=== PATIENT | female | born 1980 | race African-American/Black ===

== ENCOUNTER 2018-07-17 16:31 | Emergency (ER) | payer SELFPAY ==
[~2018-07-17] VITALS: Ht 167.6 cm; Wt 68.0 kg
[2018-07-17 16:47] VITALS: BP 146/100
[2018-07-17] MEDS ORDERED: ERYT1OIN6 OP (17:09)
--- NOTE | 2018-07-17 17:09 | PHYS DOC ---
Past Medical History Past Medical History: No Pertinent History Past Surgical History: No Surgical History Alcohol Use: Occasionally Drug Use: None Adult General Chief Complaint Chief Complaint: EYE PROBLEMS HPI HPI Patient is a 38 year old female with no significant medical history who presents today with styes to bilateral upper eyelids that began a week ago. Patient states she has tried home remedies with no success. Denies any vision loss. Review of Systems Review of Systems Constitutional: Denies fever or chills [] Eyes:Reports styes to bilateral upper eyelids. Denies change in visual acuity, redness, or eye pain [] HENT: Denies nasal congestion or sore throat [] Respiratory: Denies cough or shortness of breath [] Cardiovascular: No additional information not addressed in HPI [] GI: Denies abdominal pain, nausea, vomiting, bloody stools or diarrhea [] : Denies dysuria or hematuria [] Musculoskeletal: Denies back pain or joint pain [] Integument: Denies rash or skin lesions [] Neurologic: Denies headache, focal weakness or sensory changes [] All other systems were reviewed and found to be within normal limits, except as documented in this note. Allergies Allergies Allergies Coded Allergies Type Severity Reaction Last Updated Verified No Known Drug Allergies 07/17/18 No Physical Exam Physical Exam Constitutional: Well developed, well nourished, no acute distress, non-toxic appearance. [] HENT: Normocephalic, atraumatic, bilateral external ears normal, oropharynx moist, no oral exudates, nose normal. [] Eyes: PERRLA, EOMI, conjunctiva normal, no discharge. Left upper eyelid with 2 indurated area on the middle of the eyelid suspicious for stye. No fluctuance no erythema to the areas. Right upper eyelid with 3 indurated area distributed along the upper eyelid suspicious for stye, there is no fluctuance or erythema to this areas Neck: Normal range of motion, no tenderness, supple, no stridor. [] Cardiovascular:Heart rate regular rhythm, no murmur [] Lungs & Thorax: Bilateral breath sounds clear to auscultation [] Abdomen: Bowel sounds normal, soft, no tenderness, no masses, no pulsatile masses. [] Skin: Warm, dry, no erythema, no rash. [] Back: No tenderness, no CVA tenderness. [] Extremities: No tenderness, no cyanosis, no clubbing, ROM intact, no edema. [] Neurologic: Alert and oriented X 3, normal motor function, normal sensory function, no focal deficits noted. [] Psychologic: Affect normal, judgement normal, mood normal. [] Current Patient Data Vital Signs Vital Signs Date Time Temp Pulse Resp B/P (MAP) Pulse Ox O2 Delivery O2 Flow Rate FiO2 07/17/18 16:47 99.8 86 18 146/100 (115) 98 Room Air 99.8 EKG EKG [] Radiology/Procedures Radiology/Procedures [] Course & Med Decision Making Course & Med Decision Making Pertinent Labs and Imaging studies reviewed. (See chart for details) This is a 38-year-old female patient presenting to the ED today with multiple stye to bilateral upper eyelids. Patient was discharged on erythromycin eye ointment. Considering she has had multiple attacks, recommended she follows up with an animal husbandry teacher in the course of this week. Her blood pressure was 146/ 100 with no history of hypertension. Recommended she follows up with the PCP to have her blood pressures rechecked. Dragon Disclaimer Dragon Disclaimer This electronic medical record was generated, in whole or in part, using a voice recognition dictation system. Departure Departure Impression: Primary Impression: Stye Additional Impression: Hypertension Disposition: 01 HOME, SELF-CARE Condition: STABLE Referrals: NO PCP (PCP) Yusra MONET MD follow up in one week Patient Instructions: Hypertension, Sty Additional Instructions: You were evaluated in the emergency room for what appears to be stye, please contact the provided animal husbandry teacher and follow-up in the next 1-2 weeks. Use that eye ointment prescribed as ordered. Come back to the ED at any point symptoms worsen. Also follow up with a primary care doctor because your blood pressure is high Scripts Erythromycin Base (Erythromycin) 1 Gm Oint...g. 1 APPLIC OP Q4HRS W/A, #1 MISC Apply 1/2 inch to bilateral eyes for 7-10 days Prov: LACEY GARIBAY APRN 07/17/18 Problem Qualifiers Primary Impression: Stye Laterality: right Eyelid: upper Qualified Codes: H00.011 - Hordeolum externum right upper eyelid Additional Impression: Hypertension Hypertension type: unspecified Qualified Codes: I10 - Essential (primary) hypertension LACEY GARIBAY APRN Jul 17, 2018 17:09
== END 2018-07-17 17:14 | disposition home or self-care (01) ==
LOC: ER 16:31
DX: H00.011 Hordeolum externum right upper eyelid (principal); H00.014 Hordeolum externum left upper eyelid; I10 Essential (primary) hypertension
CPT/HCPCS: 99283